=== PATIENT | male | born 1970 | race Caucasian/White ===

== ENCOUNTER 2021-12-26 12:57 | Observation (INO) ==
[2021-12-26] MEDS ORDERED: Ondansetron 4 MG/2 ML VIAL IVP PRN (14:46)
[2021-12-26] MEDS ORDERED: Acetaminophen 325 MG TABLET PO PRN (14:46)
[2021-12-26] MEDS ORDERED: Naloxone 0.4 MG/ML INJ IVP PRN (14:46)
[2021-12-26] MEDS ORDERED: diazePAM 5 MG TABLET PO PRN (14:48)
[2021-12-26] MEDS ORDERED: DICLOFENAC SODIUM TD PRN (14:48)
[2021-12-26] MEDS ORDERED: *HR* HYDROcodone/Acet 5/325 mg TABLET PO PRN (14:48)
[2021-12-26] MEDS ORDERED: [UNRECOGNIZED DRUG - SUPPLY] SUBQ SCH (15:00)
[2021-12-26] MEDS ORDERED: Sulfamethoxazole/Trimeth DS 1 EACH TABLET PO SCH (18:30)
[2021-12-26] MEDS: Baclofen 10 MG TABLET PO SCH (22:02)
[2021-12-26] MEDS: lamoTRIgine 100 MG TABLET PO SCH (22:02)
[2021-12-27 05:03] LABS: Hematocrit 44.5 % (37.5-50.1); Hemoglobin 14.2 g/dL (12.9-16.9); Mean Corpuscular HGB Conc 31.9 g/dL (31.6-35.5); Mean Corpuscular Hemoglobin 31.7 pg (28.0-33.3); Mean Corpuscular Volume 99.3 fL (83.0-100.0); Mean Platelet Volume 8.8 fL (9.4-12.4); Platelet Count 225 K/mcL (140-400); Red Blood Count 4.48 M/mcL (4.19-5.50); Red Cell Distribution Width 13.7 % (11.5-14.5)
[2021-12-27 05:19] LABS: BUN/Creatinine Ratio 16 (6-26); Blood Urea Nitrogen 22 mg/dL (6-20); Calcium 8.7 mg/dL (8.6-10.3); Carbon Dioxide 31 mEq/L (23-29); Chloride 108 mEq/L (98-107); Glucose 152 mg/dL (70-105); Osmolality,Calculated 302 (280-300); Potassium 3.9 mEq/L (3.5-5.1); Sodium 143 mEq/L (136-145); eGFR For African Americans > 60 (> 60); eGFR For Non-African Americans 53 (> 60)
[2021-12-27] MEDS: Baclofen 10 MG TABLET PO SCH (07:51)
[2021-12-27] MEDS: lamoTRIgine 100 MG TABLET PO SCH (07:51)
[2021-12-27] MEDS ORDERED: Azithromycin 250 MG TABLET PO SCH (09:00)
[2021-12-27] MEDS ORDERED: predniSONE 10 MG TABLET PO SCH (09:00)
[2021-12-27] MEDS ORDERED: Aspirin Enteric Coated 81 MG Tablet PO SCH (09:00)
[2021-12-27] MEDS ORDERED: Tiotropium 10 INH DOSE IH SCH (10:00)
[2021-12-27 11:54] VITALS: BP 107/69; PULSE 97; RESP 18; TEMP 98; O2SAT 95
[2021-12-27 14:18] LABS: Folate 8.9 ng/mL (3.0-16.0)
== END 2021-12-27 14:25 | disposition home or self-care (01) ==
LOC: INPGRE 14:30 → INTOOBSV 14:30
PROVIDERS: ADMIT Family Medicine; ATTEND Family Medicine